=== PATIENT | male | born 1945 | race Caucasian/White ===

== ENCOUNTER → 2020-02-03 19:33 | Outpatient (ROUT) | payer MEDICARE, OTHER, SELFPAY ==
[2020-02-03 20:07] LABS: Hemoglobin 13.8 g/dL (13.5-17.5); Mean Corpuscular HGB Conc 33.6 % (30-36); Mean Corpuscular Hemoglobin 31.8 PG (26-34); Mean Corpuscular Volume 94.7 fL (80-100); Platelet Count 290 X10^3/uL (150-400); Red Blood Cell Count 4.32 X10^6/uL (4.5-5.9); Red Cell Distribution Width 13.7 % (11.6-14.8); White Blood Cell Count 7.5 X10^3/uL (4.5-11.0)
[2020-02-03 20:18] LABS: Alanine Aminotransferase 50 IU/L (<50); Albumin 4.5 g/dL (3.5-5.0); Albumin Globulin Ratio 1.6 (1.0-2.8); Alkaline Phosphatase 49 U/L (38-126); Aspartate Aminotransferase 33 IU/L (17-59); BUN Creatinine Ratio 20.5 (6-22); Bilirubin Total 0.4 mg/dL (0.2-1.3); Blood Urea Nitrogen 17 mg/dL (9-20); Calcium 10.1 mg/dL (8.4-10.2); Carbon Dioxide 29 mmol/L (22-32); Chloride 103 mmol/L (98-107); Cholesterol 164 mg/dL (140-199); Estimated Glomerular Filt Rate > 60.0 mL/min (>60); Globulin 2.8 g/dL (1.7-4.1); Glucose 111 mg/dL (80-110); HDL Cholesterol 58 mg/dL (40-60); HEMOLYSIS < 15 (0-50); LDL Cholesterol Calculated 68 mg/dL (<100); Sodium 140 mmol/L (137-145); Total Protein 7.3 g/dL (6.3-8.2); Triglycerides 188 mg/dL (35-150)
[2020-02-03 20:55] LABS: TSH w/ Reflex to FT4 0.88 uIU/mL (0.47-4.68)
[2020-02-03 21:08] LABS: Neutrophils Absolute Manual 3825 /uL (3000-5900); RBC Morphology Normal Morphology; Total Cells Counted 100
== END ==
PROVIDERS: Visit Provider Internal Medicine
DX: C18.9 Malignant neoplasm of colon, unspecified (principal); E78.2 Mixed hyperlipidemia
CPT/HCPCS: 80053; 80061; 82378; 84443; 85025

== ENCOUNTER → 2020-09-29 10:37 | Outpatient (CLI) | payer MEDICARE, OTHER, SELFPAY | PROVIDERS: Referring Provider Internal Medicine; Visit Provider Internal Medicine | DX: M54.12 Radiculopathy, cervical region (principal) ==

== ENCOUNTER → 2020-12-17 13:58 | Outpatient (CLI) | payer MEDICARE, OTHER, SELFPAY ==
--- NOTE | 2020-12-17 | DI.MRI.S_ITS ---
PROCEDURE: MR LUMBAR SPINE WO CON INDICATIONS: Lumbago with sciatica, right side TECHNIQUE: Noncontrast sagittal T1 spin echo and T2 fast echo, sagittal STIR, axial T1 and T2 fast spin echo through the lumbar spine. In cases with scoliosis, additional coronal T2 fast spin echo may be performed. COMPARISON: 05/17/2019 CT abdomen and pelvis FINDINGS: Lumbar dextroscoliosis as seen on 05/17/2019 exam. Postsurgical changes of L4-L5 posterior fixation by means of bilateral rods and pedicle screws along with interbody device. There is prior interbody fusion at L5-S1 within interbody device without the presence of fixation hardware. There is mild marrow edema in the superior L3 endplate, nonspecific. This extends into the pedicle and periarticular facet marrow slightly. There is no other convincing bone marrow signal abnormality. Vertebral body heights maintained. Normal position and appearance of the conus. Regional soft tissues demonstrate no acute finding. There is fatty atrophy and some edema in the paraspinous musculature overlying the laminectomy defects at the lumbosacral junction. The included unenhanced retroperitoneal visceral structures demonstrate no acute finding. T12-L1: No spinal canal or neural foraminal stenosis. L1-L2: No spinal canal or neural foraminal stenosis. L2-L3: Severe spinal canal stenosis due to diffuse disc bulge with a superimposed broad-based posterior disc protrusion in conjunction with bulky facet hypertrophy and buckling of the ligamentum flavum. There is complete effacement of CSF within the thecal sac. Considerable crowding and compression of the traversing nerve roots. There is laxity of the nerve roots above this level. Foraminal components of the disc bulge and facet hypertrophy combine to produce severe left and moderate right neural foraminal stenosis. L3-L4: Severe spinal canal stenosis due to posterior osteophytic ridging of the L3 endplate (for example series 2, image 9), in conjunction with bulky residual facet material. There is nearly complete effacement of CSF within the thecal sac and crowding of the traversing nerve roots with some laxity above this level (for example series 2, image 10 demonstrating nerve root laxity between the L2-L3 and L3-L4 levels. Foraminal components of the disc bulge and facet hypertrophy combine to produce severe bilateral neural foraminal narrowing. L4-L5: The spinal canal is decompressed by laminectomy. No spinal canal stenosis. Moderate bilateral neural foraminal narrowing due to some residual facet material, neural foraminal height loss, and posterior osteophytic ridging of the L4 endplate. L5-S1: No spinal canal stenosis. Moderate bilateral neural foraminal narrowing due to neural foraminal height loss. IMPRESSION: Postsurgical changes of L4-L5 and L5-S1 posterior fixation. Mild marrow edema in the superior L3 endplate is likely discogenic, and represents a potential source of nonradicular axial back pain. Severe spinal canal stenosis at L2-L3 and L3-L4, with severe neural foraminal narrowing at these levels. Moderate neural foraminal narrowing bilaterally at L4-L5 and L5-S1. Dictated by: Jose Lind M.D. on 12/17/2020 at 15:43 Approved by: Jose Lind M.D. on 12/17/2020 at 15:48
== END ==
PROVIDERS: PCP Internal Medicine; Referring Provider Orthopaedic Surgery; Visit Provider Orthopaedic Surgery
DX: M54.41 Lumbago with sciatica, right side (principal); M48.061 Spinal stenosis, lumbar region without neurogenic claudication; M48.07 Spinal stenosis, lumbosacral region; Z98.1 Arthrodesis status
CPT/HCPCS: 72148

== ENCOUNTER → 2021-08-30 10:40 | Outpatient (CLI) | payer MEDICARE, OTHER, SELFPAY ==
[2021-08-30 13:56] LABS: COVID-19 CEPHEID PCR (VTM/NP) Negative (Negative)
== END ==
PROVIDERS: PCP Internal Medicine; Visit Provider Family Medicine Sleep Medicine
DX: Z20.822 Contact with and (suspected) exposure to COVID-19 (principal)
CPT/HCPCS: C9803; U0003; U0005

== ENCOUNTER → 2021-09-07 06:57 | Outpatient (CLI) | payer MEDICARE, OTHER, SELFPAY ==
--- NOTE | 2021-09-07 | DI.US.S_ITS ---
PROCEDURE: US ABDOMEN LIMITED INDICATIONS: ELEVATED LFT'S TECHNIQUE: Real-time focused scanning was performed of the abdomen, with image documentation. COMPARISON: [facility], CT, CT ABDOMEN PELVIS WITH CONTRAST, 05/17/2019, 22:27. FINDINGS: Liver is normal in size and homogeneous in echotexture. Liver is diffusely echogenic. Multiple small mobile gallstones are noted. Largest gallstone measures 7 millimeters. Gallbladder wall measures 1.8 millimeters. No pericholecystic fluid. No sonographic Bo sign. Biliary tree is nondilated. Common bile duct measures 4.7 millimeters. Pancreas is sonographically normal. IMPRESSION: 1. Echogenic liver. Finding typically represents fatty infiltration; however, finding is nonspecific and correlation with clinical and laboratory findings is recommended to exclude other etiologies including hepatic cirrhosis. 2. Cholelithiasis without sonographic evidence of cholecystitis. If there is continued clinical concern for cholecystitis, a nuclear medicine HIDA scan should be considered for further evaluation. Dictated by: Leda Jacinto MD, PhD on 09/07/2021 at 8:02 Approved by: Leda Jacinto MD, PhD on 09/07/2021 at 8:03
== END ==
PROVIDERS: PCP Internal Medicine; Referring Provider Internal Medicine; Visit Provider Internal Medicine
DX: K80.20 Calculus of gallbladder without cholecystitis without obstruction (principal); R79.89 Other specified abnormal findings of blood chemistry
CPT/HCPCS: 76705

== ENCOUNTER → 2022-01-13 09:34 | Outpatient (CLI) | payer MEDICARE, OTHER, SELFPAY ==
[2022-01-13 10:01] LABS: Hematocrit 41.7 % (41-53); Mean Corpuscular HGB Conc 33.7 % (30-36); Mean Corpuscular Hemoglobin 32.2 PG (26-34); Mean Corpuscular Volume 95.5 fL (80-100); Platelet Count 225 X10^3/uL (150-400); Red Blood Cell Count 4.36 X10^6/uL (4.5-5.9); Red Cell Distribution Width 13.6 % (11.6-14.8); White Blood Cell Count 5.2 X10^3/uL (4.5-11.0)
[2022-01-13 10:44] LABS: Alanine Aminotransferase 69 IU/L (<50); Albumin 4.5 g/dL (3.5-5.0); Albumin Globulin Ratio 1.4 (1.0-2.8); Alkaline Phosphatase 47 U/L (38-126); Aspartate Aminotransferase 43 IU/L (17-59); BUN Creatinine Ratio 18.2 (6-22); Bilirubin Total 0.5 mg/dL (0.2-1.3); Blood Urea Nitrogen 16 mg/dL (9-20); Calcium 9.6 mg/dL (8.4-10.2); Carbon Dioxide 32 mmol/L (22-32); Chloride 103 mmol/L (98-107); Cholesterol 125 mg/dL (140-199); Estimated Glomerular Filt Rate > 60 mL/min (>60); Globulin 3.3 g/dL (1.7-4.1); Glucose 117 mg/dL (80-110); HDL Cholesterol 64 mg/dL (40-60); HEMOLYSIS < 15 (0-50); LDL Cholesterol Calculated 50 mg/dL (<100); Potassium 4.4 mmol/L (3.4-5.1); Sodium 141 mmol/L (137-145); Total Protein 7.8 g/dL (6.3-8.2); Triglycerides 57 mg/dL (35-150)
[2022-01-13 11:13] LABS: TSH w/ Reflex to FT4 1.09 uIU/mL (0.47-4.68)
== END ==
PROVIDERS: PCP Internal Medicine; Referring Provider Internal Medicine; Visit Provider Internal Medicine
DX: E78.2 Mixed hyperlipidemia (principal); I10 Essential (primary) hypertension; K75.81 Nonalcoholic steatohepatitis (NASH)
CPT/HCPCS: 36415; 80053; 80061; 84443; 85027

== ENCOUNTER → 2022-03-21 15:38 | Outpatient (CLI) | payer MEDICARE, OTHER, SELFPAY ==
[2022-03-21 16:29] LABS: Estimated Glomerular Filt Rate > 60 mL/min (>60)
== END ==
PROVIDERS: PCP Internal Medicine; Referring Provider Radiology Diagnostic Radiology; Visit Provider Radiology Diagnostic Radiology
DX: C18.9 Malignant neoplasm of colon, unspecified (principal)
CPT/HCPCS: 36415; 82565

== ENCOUNTER → 2022-03-24 08:56 | Outpatient (CLI) | payer MEDICARE, OTHER, SELFPAY ==
--- NOTE | 2022-03-24 | DI.CT.S_ITS ---
PROCEDURE: CT ABDOMEN PELVIS W CON INDICATIONS: COLON CANCER TECHNIQUE: After the administration of oral and IV contrast, axial sections were acquired from the lung bases to the pubic symphysis. Coronal and sagittal reformats were performed. For radiation dose reduction, the following was used: automated exposure control, adjustment of mA and/or kV according to patient size. COMPARISON: [facility], CT, CT ABDOMEN PELVIS WITH CONTRAST, 05/17/2019, 22:27. [facility], CT, CT ABDOMEN PELVIS WITH CONTRAST, 04/05/2019, 18:14. [facility], CT, CT ABDOMEN PELVIS WITH CONTRAST, 04/02/2019, 3:30. [facility], US, US ABDOMEN LIMITED, 09/07/2021, 7:29. FINDINGS: Image quality: Excellent. Lung bases: Unremarkable. Heart: No significant findings. Moderate coronary artery calcification is seen. ABDOMEN: Liver: Unremarkable. Gallbladder: Unremarkable. Biliary ducts: Unremarkable. Pancreas: Unremarkable. Spleen: Unremarkable. Adrenal Glands: Unremarkable. Kidneys and Ureters: Mild left-sided hydroureter and hydronephrosis. No cause of obstruction can be seen. This is new compared to the prior examination. The kidneys demonstrate normal size and enhance symmetrically. Stomach and Bowel: Postoperative changes are seen, with retrosigmoid resection, with an anastomotic staple line seen distally. Anastomotic staple lines are also seen involving the distal small bowel. No clara colonic masses are seen. No dilated loops of small bowel are seen. No significant gastric abnormality is seen. Peritoneum: No peritoneal abscess is seen. No free air or significant free fluid can be seen. Ventral Wall: A mild periumbilical hernia is seen, containing fat. Abdominal Nodes: No retroperitoneal or mesenteric adenopathy by size criteria. Vessels: Aorta and inferior vena cava are normal in size. Atherosclerotic calcification is noted. PELVIS: Pelvic Organs: There is a penile implant seen. There is a right lower quadrant reservoir seen. Bladder: Unremarkable. Pelvic Nodes: No enlarged lymph nodes. Miscellaneous: No inguinal hernias are seen. Bones: There is [id number] dextroconvex lumbar scoliosis. Mild retrolisthesis is seen at L2-L3 and L3-L4. At L2-L3, there is moderate disc space narrowing seen. At L3-L4, there is moderate to severe disc space narrowing seen, with associated endplate irregularity and sclerosis. Postoperative change is seen, with bilateral pedicle screws at L4 and L5. Vertical fixation rods are seen. Disc spacers are seen at L4-L5 and L5-S1. IMPRESSION: Prior postoperative change of the colon and the distal small bowel, without clara recurrent masses by CT. There is mild left-sided hydroureter and hydronephrosis, which is new compared to the prior CT. Incidental note is made of: Moderate coronary artery calcification Fat containing periumbilical hernia Dextroconvex scoliosis Lumbar spine postoperative and degenerative changes are seen. Penile implant, with a right lower quadrant reservoir. Dictated by: Brock Corral M.D. on 03/24/2022 at 11:05 Approved by: Brock Corral M.D. on 03/24/2022 at 11:13
== END ==
PROVIDERS: PCP Internal Medicine; Referring Provider Colon & Rectal Surgery; Visit Provider Colon & Rectal Surgery
DX: C18.9 Malignant neoplasm of colon, unspecified (principal); R10.2 Pelvic and perineal pain; N13.30 Unspecified hydronephrosis; I25.10 Atherosclerotic heart disease of native coronary artery without angina pectoris; K42.9 Umbilical hernia without obstruction or gangrene; M41.9 Scoliosis, unspecified; M47.816 Spondylosis without myelopathy or radiculopathy, lumbar region; Z98.1 Arthrodesis status
CPT/HCPCS: 74177; Q9967

== ENCOUNTER → 2023-06-22 15:16 | Outpatient (CLI) | payer MEDICARE, OTHER, SELFPAY | LOC: CAR 15:17 | PROVIDERS: PCP Internal Medicine; Referring Provider Internal Medicine; Visit Provider Internal Medicine | DX: R00.2 Palpitations (principal) | CPT/HCPCS: 93246 ==

== ENCOUNTER → 2024-05-30 08:04 | Outpatient (CLI) | payer MEDICARE, OTHER, SELFPAY ==
--- NOTE | 2024-05-30 08:05 | DI.ECHO.S_ITS ---
[place] [facility] : : [id number] : [place] : : [id number] : : Phone: [phone] Echocardiogram Report + + :Name: MARVIN VALLEJO Study Date: 05/30/2024 Height: 68 in : :[facility] ReadingLocation: Weight: 177 lb : : Gender: Male BSA: 1.9 m2 : :: 1945 Age: 78 yrs BP: 148/91 mmHg: :Reason For Study: HEART MURMUR : :Ordering Physician: DES, : :RENALDO Performed By: Taylor Redding : :Referring: RENALDO NUNES : + + Interpretation Summary 1) Normal left ventricular thickness, size, wall motion, and systolic function (EF 55-60%). 2) Normal right ventricular size with low normal function. 3) There is mild aortic stenosis (valve area 1.8cm2, mean gradient 12mmHg, severity ratio 0.46). 4) Compared to the Echo done 03/06/2020, mild aortic stenosis is present on this study. Procedure: A two-dimensional transthoracic echocardiogram with color flow and Doppler was performed. The study quality was technically adequate. There is no prior echocardiogram noted for this patient. The patient was in sinus bradycardia with heart rates between 53-58 bpm during the exam. Left Ventricle: The left ventricle is normal in size and wall thickness. The ejection fraction is estimated to be 55-60%. Left ventricular systolic function appears normal without focal wall motion abnormalities. Diastolic parameters suggest a pseudonormalization pattern, consistent with probable elevated filling pressures. Right Ventricle: The right ventricle is normal size. Right ventricular systolic function is at the lower limits of normal. Atria: The left atrium is mildly dilated. Right atrial size is normal. There is no Doppler evidence for an interatrial shunt. Mitral Valve: The mitral valve leaflets appear to open well. There is mild mitral regurgitation. Aortic Valve: The aortic valve is moderately calcified. The aortic valve is trileaflet. The peak aortic velocity is 2.4 m/sec. The aortic valve mean gradient is 12 mmHg. The calculated aortic valve area is 1.8 cm2. There is mild aortic stenosis. No aortic regurgitation is present. Tricuspid Valve: The tricuspid valve leaflets are thin and pliable. There is mild tricuspid regurgitation. The right ventricular systolic pressure is estimated to be at least 22 mmHg based on an estimated right atrial pressure of 3 mm Hg. Pulmonic Valve: The pulmonic valve leaflets are thin and pliable; valve motion is normal. There is no pulmonic valvular regurgitation. Great Vessels: The aortic root is normal size. The dimensions of the ascending aorta are normal. The IVC is of normal diameter and collapses greater than 50% with a sniff. This suggests a low right atrial pressure of 3 mm Hg. Pericardium/ Pleura There is no pericardial effusion. There is no pleural effusion. MMode/2D Measurements & Calculations LVIDd: 4.7 cm LVOT diam: 2.3 cm LVIDs: 2.9 cm Ao root diam: 3.4 cm FS: 39.4 % asc Aorta Diam: 3.7 cm EPSS: 0.56 cm Ao Arch Diam (Prox Trans): 2.5 cm IVSd: 1.0 cm LVPWd: 1.0 cm LV bass. diameter/BSA (cm/m^2): 2.4 LV sys. diameter/BSA (cm/m^2): 1.5 LA A2 area: 21.2 cm2 RA long axis: 5.4 cm LA A4 area: 21.2 cm2 RA area: 13.8 cm2 LA length (vol): 5.6 cm RA vol: 29.8 ml LA vol: 67.9 ml RA : 15.4 ml/m2 LA vol index: 35.0 ml/m2 IVC diam: 1.1 cm RVD1 (basal): 3.6 cm RVD2 (mid): 3.2 cm TAPSE: 1.5 cm Doppler Measurements & Calculations Ao V2 max: 237.2 cm/sec LVOT Max Roberto: 103.7 cm/sec Ao V2 mean: 160.1 cm/sec LV V1 max P.3 mmHg Ao max P.5 mmHg LV V1 VTI: 26.1 cm Ao mean P.9 mmHg IZZY(I,D): 1.9 cm2 Ao V2 VTI: 57.3 cm IZZY(V,D): 1.8 cm2 sev ratio: 0.46 IZZY indexed to BSA (cm^2/m^2): 0.99 MV E max roberto: 91.7 cm/sec TR max roberto: 216.8 cm/sec MV A max roberto: 102.8 cm/sec TR max P.8 mmHg MV E/A: 0.89 PA V2 max: 114.8 cm/sec Med Peak E' Roberto: 6.1 cm/sec PA V2 mean: 74.9 cm/sec E/E' med: 15.1 PA mean P.5 mmHg Lat Peak E' Roberto: 6.2 cm/sec PA pr(Accel): -1.5 mmHg E/E' lat: 14.8 E/e' average: 15.0 MV dec time: 0.22 sec SV(PINAOT): 110.4 ml Reading Physician:02:24 PM
== END ==
PROVIDERS: PCP Internal Medicine; Referring Provider Internal Medicine; Visit Provider Internal Medicine
DX: R01.1 Cardiac murmur, unspecified (principal); I08.3 Combined rheumatic disorders of mitral, aortic and tricuspid valves
CPT/HCPCS: 93306

== ENCOUNTER → 2025-04-09 09:31 | Outpatient (CLI) | payer MEDICARE, OTHER, SELFPAY ==
[2025-04-09 09:58] LABS: Hematocrit 40.9 % (41-53); Hemoglobin 13.8 g/dL (13.5-17.5); Mean Corpuscular HGB Conc 33.8 % (30-36); Mean Corpuscular Hemoglobin 32.4 PG (26-34); Mean Corpuscular Volume 96.0 fL (80-100); Platelet Count 223 X10^3/uL (150-400)
[2025-04-09 10:06] LABS: Hemoglobin A1C% w Est Avg Glu 5.4 % (4.0-6.0)
[2025-04-09 10:20] LABS: Alanine Aminotransferase 50 IU/L (<50); Albumin 4.3 g/dL (3.5-5.0); Albumin Globulin Ratio 1.6 (1.0-2.8); Alkaline Phosphatase 46 U/L (38-126); Blood Urea Nitrogen 17 mg/dL (9-20); Calcium 10.0 mg/dL (8.4-10.2); Carbon Dioxide 29 mmol/L (22-32); Chloride 106 mmol/L (98-107); Cholesterol 127 mg/dL (140-199); Estimated Glomerular Filt Rate > 60 mL/min (>60); Globulin 2.7 g/dL (1.7-4.1); Glucose 89 mg/dL (70-99); HDL Cholesterol 78 mg/dL (40-60); HEMOLYSIS < 15 (0-50); Potassium 3.9 mmol/L (3.4-5.1); Sodium 142 mmol/L (137-145); Total Protein 7.0 g/dL (6.3-8.2); Triglycerides 119 mg/dL (35-150)
[2025-04-09 10:46] LABS: TSH w/ Reflex to FT4 1.07 uIU/mL (0.47-4.68)
== END ==
PROVIDERS: PCP Internal Medicine; Referring Provider Internal Medicine; Visit Provider Internal Medicine
DX: I10 Essential (primary) hypertension (principal); R73.01 Impaired fasting glucose; E78.2 Mixed hyperlipidemia; K75.81 Nonalcoholic steatohepatitis (NASH)
CPT/HCPCS: 36415; 80053; 80061; 83036; 84443; 85027